=== PATIENT | male | born 1980 | race Caucasian/White ===

== ENCOUNTER 2024-11-17 13:16 | Emergency (ER) | payer OTHER ==
[~2024-11-17] VITALS: Ht 165.1 cm; Wt 99.8 kg
[2024-11-17] MEDS ORDERED: Diphth,Pertuss(Acell),Tet Vac 0.5 ML VIAL IM ONE (14:15)
[2024-11-17] MEDS ORDERED: Silver Sulfadiazine 1% Cream 25 APPLIC/25 GM Tube TOP ONE (16:30)
[2024-11-17] MEDS ORDERED: SILVADENE20 G8 TOP ×2 (16:50→16:52)
[2024-11-17] MEDS ORDERED: CEPH500 PO ×2 (16:50→16:52)
== END 2024-11-17 17:10 | disposition home or self-care (01) ==
LOC: ER 13:16
DX: T22.312A Burn of third degree of left forearm, initial encounter (principal); T22.232A Burn of second degree of left upper arm, initial encounter; L03.114 Cellulitis of left upper limb; Z23 Encounter for immunization; Z59.89 Other problems related to housing and economic circumstances
CPT/HCPCS: 90471; 90715; 99283-25; A9270